=== PATIENT | female | born 1970 | race Caucasian/White ===

== ENCOUNTER 2025-01-14 20:29 | Emergency (ER) | payer OTHER, SELFPAY ==
[2025-01-14] VITALS (8 sets, daily range): BP systolic 121–150; BP diastolic 69–78; PULSE 66–86; RESP 18–20; TEMP 36.4; O2SAT 97–98; BMI 36.3
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
[2025-01-14] MEDS: ONDANSETRON 4 MG ODT SL (22:11)
== END 2025-01-14 23:09 | disposition home or self-care (01) ==
PROVIDERS: Emergency Provider Emergency Medicine
DX: T59.811A Toxic effect of smoke, accidental (unintentional), initial encounter (principal)
CPT/HCPCS: 99283